=== PATIENT | male | born 1975 | race Caucasian/White ===

== ENCOUNTER 2024-02-11 22:02 | Emergency (ER) | payer OTHER, SELFPAY ==
[2024-02-11 22:16] VITALS: BP 176/113; PULSE 110; RESP 16; TEMP 37.3; O2SAT 93; BMI 43.5
[2024-02-11 23:07] LABS: Bacteria Urine Occasional (0-1); RBC Urine 10-30/HPF (0-5/HPF); Squamous Epithelial Cell Urine 1-5 /HPF (0-5/HPF); Urine Volume 10mL (spun)
[2024-02-11 23:08] LABS: Hyaline Casts Urine 1-5/LPF; Mucus Urine 3+ (Negative); WBC Urine 1-5/HPF (0-5/HPF)
[2024-02-11 23:10] LABS: Calcium Oxalate Crystals Urine Occasional; Culture Indicated Urine Cult Not Indicated; Uric Acid Crystals Urine Occasional
[2024-02-11 23:18] VITALS: PULSE 99; O2SAT 95
[2024-02-11 23:21] LABS: Add Manual Diff / Slide Review NO; Alanine Aminotransferase 58 IU/L (<50); Albumin 4.7 g/dL (3.5-5.0); Albumin Globulin Ratio 1.2 (1.0-2.8); Alkaline Phosphatase 87 U/L (38-126); Aspartate Aminotransferase 38 IU/L (17-59); BUN Creatinine Ratio 15.3 (6-22); Basophils Absolute Auto 0 /uL (0-100); Basophils Percent Auto 0.2 % (0-2); Bilirubin Total 1.1 mg/dL (0.2-1.3); Blood Urea Nitrogen 20 mg/dL (9-20); Carbon Dioxide 22 mmol/L (22-32); Chloride 107 mmol/L (98-107); Eosinophils Absolute Auto 0 /uL (0-450); Eosinophils Percent Auto 0.1 % (2-4); Estimated Glomerular Filt Rate > 60 mL/min (>60); Globulin 3.8 g/dL (1.7-4.1); Glucose 127 mg/dL (70-100); HEMOLYSIS 16 (0-50); Hematocrit 49.3 % (41-53); Hemoglobin 17.3 g/dL (13.5-17.5); Lipase 85 U/L (23-300); Lymphocytes Absolute Auto 1200 /uL (1100-4500); Lymphocytes Percent Auto 7.1 % (25-40); Mean Corpuscular Hemoglobin 28.4 PG (26-34); Mean Corpuscular Volume 81.2 fL (80-100); Monocytes Absolute Auto 700 /uL (0-900); Monocytes Percent Auto 3.9 % (3-14); Neutrophils Absolute Auto 15300 /uL (1500-7000); Neutrophils Percent Auto 88.7 % (50-75); Platelet Count 318 X10^3/uL (150-400); Potassium 4.3 mmol/L (3.4-5.1); Red Blood Cell Count 6.07 X10^6/uL (4.5-5.9); Red Cell Distribution Width 14.8 % (11.6-14.8); Sodium 139 mmol/L (137-145); Total Protein 8.5 g/dL (6.3-8.2); White Blood Cell Count 17.3 X10^3/uL (4.5-11.0)
[2024-02-11 23:31] VITALS: BP 150/75; PULSE 95; O2SAT 93
[2024-02-12] VITALS: BP 158/80; PULSE 105; O2SAT 92
[2024-02-12 00:30] VITALS: PULSE 102; O2SAT 92
[2024-02-12 00:31] VITALS: BP 155/68; PULSE 97; O2SAT 92
--- NOTE | 2024-02-12 00:42 | DI.CT.S_ITS ---
PROCEDURE: CT KIDNEY URETER BLADDER (KUB) INDICATIONS: right flank pain TECHNIQUE: Axial sections were acquired from the lung bases to the pubic symphysis. Coronal and sagittal reformats were performed. For radiation dose reduction, the following was used: automated exposure control, adjustment of mA and/or kV according to patient size. COMPARISON: None. FINDINGS: Image quality: Diagnostic. Lower Chest: Scarring in the right lung base. URINARY: Right Kidney: Moderate hydronephrosis. Perinephric fat stranding. Right Ureter: Obstructing 6 x 3 millimeter stone in the right UVJ (379 Hounsfield unit), resulting in moderate hydroureter. Left Kidney: No stones or hydronephrosis. Left Ureter: No hydroureter. Bladder: Normal wall thickness. No stones. ABDOMEN: Liver: No contour-deforming solid mass. Hepatic steatosis. Gallbladder: No radiopaque gallstones or wall thickening. Biliary ducts: No biliary dilation. Pancreas: No ductal dilation. Spleen: Size is within normal limits. Adrenal Glands: No adrenal nodules. Stomach and Bowel: Normal colonic caliber, without significant wall thickening. Colonic diverticulosis without evidence of diverticulitis. Normal appendix. Peritoneum: No abnormal intraperitoneal fluid. No free air. Ventral Wall: No hernia. Abdominal Nodes: No enlarged retroperitoneal or mesenteric lymph nodes. Vessels: Aorta and inferior vena cava are normal in size. PELVIS: Pelvic Organs: Unremarkable. Pelvic Nodes: Unremarkable. Miscellaneous: Small, fat containing inguinal hernias. Bones: Unremarkable. IMPRESSION: Obstructing 6 x 3 millimeter stone in the right UVJ, resulting in moderate hydronephrosis and hydroureter. Dictated by: Driss Astorga M.D. on 02/12/2024 at 1:14 Approved by: Driss Astorga M.D. on 02/12/2024 at 1:16
--- NOTE | 2024-02-12 00:43 | ED.MALEGU ---
HPI - Male Genitourinary General Chief complaint: Urogenital-Male Stated complaint: possible kidney stones Time Seen by Provider: 02/12/24 00:38 Source: patient Mode of arrival: Ambulatory History of Present Illness HPI Narrative: Gentleman with no history of kidney stones comes to the ED with 2 days of right flank pain radiating to the groin. The pain comes in waves and when it is very severe causes vomiting. He has not had fever otherwise. The pain radiates around the front of his abdomen as well. It bothered him a little bit yesterday for an hour or 2 and then resolved and then it has been bothering quite severely since about 5:00 p.m. yesterday. He had an oxycodone at home which he took which helped a lot with the pain. He has not been sick otherwise. Does notice dysuria he is noticed darker colored urine. No trauma. He does have hypertension. He denies any other health conditions. No history of abdominal disease otherwise. Related Data Previous Rx's Medication Instructions Recorded oxycodone 5 mg capsule 5 mg PO Q4H PRN pain #12 caps 02/12/24 Patient History Social History Smoking Status: Never smoker Smoking Status: Never smoker alcohol intake frequency: holidays/special occasions only Substance Use Type: does not use Exam Narrative Exam Narrative: GENERAL: Alert, cooperative and in no distress. HEAD: Atraumatic. Normocephalic. EYES: Sclera are clear without icterus. Extraocular movements are full. ENT: No rhinorrhea. NECK: Supple. Full range of motion. CARDIOVASCULAR: Normal rate and rhythm without murmur gallop or rub. RESPIRATORY: Clear to auscultation. Breath sounds equal bilaterally. No wheezes, rales, or rhonchi. GASTROINTESTINAL: Abdomen soft, non-tender, nondistended. EXTREMITIES: No edema, full range of motion. No obvious trauma. NEURO: Nonfocal examination, normal speech SKIN: No rash or erythema of visible areas PSYCH: Normally oriented. Normal range of affect. Appropriate behavior Initial Vital Signs Initial Vital Signs: Vital Signs Temperature 99.1 F 02/11/24 22:16 Pulse Rate 110 H 02/11/24 22:16 Respiratory Rate 16 02/11/24 22:16 Blood Pressure 176/113 H 02/11/24 22:16 Pulse Oximetry 93 02/11/24 22:16 Oxygen Delivery Method Room Air 02/11/24 22:16 Course Orders Ordered: ED Orders 02/11/24 22:26 Urine Microscopic Stat 02/11/24 22:58 Complete Blood Count AUTO DIFF Stat Comprehensive Metabolic Panel Stat Lipase Stat 02/12/24 00:42 CT kidney ureter bladder (KUB) Stat Ondansetron HCl (Ondansetron 4 Mg Odt) 4 mg PO NOW PRN PRN Reason: Nausea And Vomiting Ondansetron HCl (Ondansetron 4 Mg/2 Ml Inj) 4 mg IV NOW PRN PRN Reason: Nausea And Vomiting Vital Signs Vital signs: Vital Signs - 8 hr 02/11/24 22:16 02/11/24 23:18 02/11/24 23:31 Temperature 99.1 F Pulse Rate 110 H 99 H 95 H Respiratory Rate 16 Blood Pressure 176/113 H Pulse Oximetry 93 95 93 Oxygen Delivery Method Room Air Room Air Room Air 02/11/24 23:31 02/12/24 00:00 02/12/24 00:00 Temperature Pulse Rate 105 H Respiratory Rate Blood Pressure 150/75 H 158/80 H Pulse Oximetry 92 Oxygen Delivery Method Room Air 02/12/24 00:30 02/12/24 00:31 02/12/24 00:31 Temperature Pulse Rate 102 H 97 H Respiratory Rate Blood Pressure 155/68 H Pulse Oximetry 92 92 Oxygen Delivery Method Room Air Room Air MDM - Male Genitourinary Lab Data 02/11/24 22:58 02/11/24 22:58 Labs: Lab Results 02/11/24 02/11/24 Range/Units 22:26 22:58 WBC 17.3 H (4.5-11.0) X10^3/uL RBC 6.07 H (4.5-5.9) X10^6/uL Hgb 17.3 (13.5-17.5) g/dL Hct 49.3 (41-53) % MCV 81.2 (80-100) fL MCH 28.4 (26-34) PG MCHC 35.0 (30-36) % RDW 14.8 (11.6-14.8) % Plt Count 318 (150-400) X10^3/uL Neut % (Auto) 88.7 H (50-75) % Lymph % (Auto) 7.1 L (25-40) % [place] % (Auto) 3.9 (3-14) % Eos % (Auto) 0.1 L (2-4) % Baso % (Auto) 0.2 (0-2) % Neut # (Auto) 63071 H (7526-5460) /uL Lymph # (Auto) 1200 (9019-8187) /uL [place] # (Auto) 700 (0-900) /uL Eos # (Auto) 0 (0-450) /uL Baso # (Auto) 0 (0-100) /uL Sodium 139 (137-145) mmol/L Potassium 4.3 (3.4-5.1) mmol/L Chloride 107 (98-107) mmol/L Carbon Dioxide 22 (22-32) mmol/L BUN 20 (9-20) mg/dL Creatinine 1.31 H (0.66-1.25) mg/dL Estimated GFR > 60 (>60) mL/min BUN/Creatinine Ratio 15.3 (6-22) Glucose 127 H (70-100) mg/dL Calcium 10.0 (8.4-10.2) mg/dL Total Bilirubin 1.1 (0.2-1.3) mg/dL AST 38 (17-59) IU/L ALT 58 H (<50) IU/L Alkaline Phosphatase 87 (38-126) U/L Total Protein 8.5 H (6.3-8.2) g/dL Albumin 4.7 (3.5-5.0) g/dL Globulin 3.8 (1.7-4.1) g/dL Albumin/Globulin Ratio 1.2 (1.0-2.8) Lipase 85 (23-300) U/L Urine RBC 10-30/hpf H (0-5/HPF) Urine WBC 1-5/hpf (0-5/HPF) Ur Squamous Epith Cells 1-5 /hpf (0-5/HPF) Calcium Oxalate Crystal Occasional H Uric Acid Crystals Occasional (None) Urine Bacteria Occasional (0-1) (None) Hyaline Casts 1-5/lpf (None) Urine Mucus 3+ H (Negative) Ur Culture Indicated? Cult not indicated Vol Urine Centrifuged 10ml (spun) Urine Dip Bedside Urine Glucose Negative Bedside Urine Bilirubin - Negative Bedside Urine Ketone +++ 80 Urine Specific [place] 1.030 Bedside Urine Occult Blood ++ Bedside Urine pH 6.0 Bedside Urine Protein ++ 100 Bedside Urine Urobilinogen - Negative Bedside Urine Nitrite - Negative Bedside Urine Leukocytes - Negative Esterase Discharge Plan Departure Patient Disposition: Home Clinical Impression: Hydronephrosis with urinary obstruction due to ureteral calculus Instructions: DI for Kidney Stones Activity Restrictions/Additional Instructions: You have a 6 x 3 mm ureteral stone on the right. This should pass on its own. To facilitate this I recommend copious oral hydration. For pain management I recommend Tylenol 1000 mg taken together with ibuprofen 600 mg every 6 hours. For more severe pain and recommend 5 mg oxycodone every 4 hours as needed. Narcotics can be sedating and so you should not drive a car or operate machinery while taking this medicine. They should not be combined with other sedatives such as benzodiazepines, alcohol or other sleep aids. You should follow-up right away for signs of infection such as fever chills or sweats. You should also follow up right away for pain not reasonably managed with the above regimen. Follow-up with Urology next week if symptoms are not improving. Prescriptions: New oxycodone 5 mg capsule 5 mg PO Q4H PRN (Reason: pain) Qty: 12 0RF Referrals: Jp Aguilera MD [Non-Staff] - Stand Alone Forms: Patient Portal/API
== END 2024-02-12 01:55 | disposition home or self-care (01) ==
PROVIDERS: Emergency Provider Family Medicine Addiction Medicine
DX: N13.2 Hydronephrosis with renal and ureteral calculous obstruction (principal); I10 Essential (primary) hypertension
CPT/HCPCS: 36415; 74176; 80053; 81003; 81015; 83690; 85025; 99283; 99284